=== PATIENT | female | born 1995 | race Hispanic/Latino ===

== ENCOUNTER 2020-07-06 18:16 | Observation (INO) | payer BC, MEDICAID ==
[~2020-07-06] VITALS: Ht 162.6 cm; Wt 87.1 kg
[2020-07-06 19:29] LABS: APPEARANCE,URINE Clear (CLEAR); BILIRUBIN,URINE Negative (NEGATIVE); COLOR,URINE Yellow (YELLOW); GLUCOSE, URINE (UA) Negative (NEGATIVE); KETONES,URINE Trace mg/dL (NEGATIVE); LEUKOCYTE ESTERASE ,URINE Large (NEGATIVE); NITRATE,URINE Negative (NEGATIVE); OCCULT BLOOD,URINE Negative (NEGATIVE); PROTEIN,URINE Negative (NEGATIVE); UROBILINOGEN,URINE 0.2 mg/dL (0.2-1.0)
[2020-07-06 19:46] LABS: BACTERIA,URINE Few /HPF (None Seen); MUCUS,URINE Few LPF (None Seen); SQUAMOUS EPITHELIAL CELL,UR Rare /HPF (0-2)
[2020-07-07] MEDS ORDERED: CETI10CA5 PO (22:48)
[2020-07-07] MEDS ORDERED: PREN1TAB80 PO (22:48)
== END 2020-07-06 21:15 | disposition home or self-care (01) ==
LOC: EDH 18:16 → LDH 18:17
PROVIDERS: ADMIT Obstetrics & Gynecology; ATTEND Obstetrics & Gynecology
DX: O62.9 Abnormality of forces of labor, unspecified (principal); O48.0 Post-term pregnancy; O99.513 Diseases of the respiratory system complicating pregnancy, third trimester; J45.909 Unspecified asthma, uncomplicated; Z91.040 Latex allergy status; Z91.048 Other nonmedicinal substance allergy status; Z91.013 Allergy to seafood; Z3A.40 40 weeks gestation of pregnancy
CPT/HCPCS: 59025; 81001; 87088; 99283; G0378 ×3

== ENCOUNTER 2020-07-07 10:25 | Inpatient (IN) | payer BC, MEDICAID ==
[~2020-07-07] VITALS: Ht 162.6 cm; Wt 87.1 kg
[2020-07-07] MEDS ORDERED: LACTATED RINGERS 1000ML 1,000 ML IV PRN (10:45)
[2020-07-07] MEDS ORDERED: ROPIVACAINE 0.2% 100ML VIAL 100 ML EP SCH (10:45)
[2020-07-07] MEDS ORDERED: LACTATED RINGERS 500 ML 500 ML IV PRN (10:45)
[2020-07-07] MEDS ORDERED: EPHEDRINE SULFATE 50 MG/ML AMPULE IVP PRN (10:45)
[2020-07-07] MEDS ORDERED: BUTORPHANOL TARTRATE 2 MG/ML IVP PRN (10:45)
[2020-07-07] MEDS ORDERED: NALOXONE HCL 0.4 MG/1 ML ML IV PRN (10:45)
[2020-07-07] MEDS ORDERED: OXYTOCIN-LR 20 UNITS/1000 ML 1,000 ML IV SCH (10:45)
[2020-07-07 12:07] LABS: APPEARANCE,URINE Cloudy (CLEAR); BILIRUBIN,URINE Negative (NEGATIVE); COLOR,URINE Yellow (YELLOW); GLUCOSE, URINE (UA) Negative (NEGATIVE); KETONES,URINE 40 mg/dL (NEGATIVE); LEUKOCYTE ESTERASE ,URINE Moderate (NEGATIVE); NITRATE,URINE Negative (NEGATIVE); OCCULT BLOOD,URINE Negative (NEGATIVE); PROTEIN,URINE Negative (NEGATIVE)
[2020-07-07 12:35] LABS: HEMATOCRIT 38.4 % (36-48); MEAN CORPUSCULAR HEMOGLOBIN 30.6 pg (27.0-33.0); MEAN CORPUSCULAR HGB CONC 33.9 g/dL (32.0-36.0); MEAN CORPUSCULAR VOLUME 90.4 fL (79-99); RED BLOOD CELL COUNT(AUTO) 4.25 MIL/uL (4.00-5.50); RED CELL DISTRIBUTION WIDTH 13.3 % (11.0-15.5); WHITE BLOOD COUNT (AUTO) 8.9 K/uL (4.8-10.8)
[2020-07-07 13:07] LABS: BACTERIA,URINE Few /HPF (None Seen)
[2020-07-07 13:08] LABS: RBC,URINE 0-1 /HPF (0-1)
[2020-07-07] MEDS ORDERED: ACETAMINOPHEN 325 MG TAB PO PRN (17:15)
[2020-07-07] MEDS ORDERED: BENZOCAINE/LANOLIN/ALOE VERA 60 ML AEROSOL TP PRN (17:15)
[2020-07-07] MEDS ORDERED: LANOLIN 30GM OINTMENT TP PRN (17:15)
[2020-07-07] MEDS ORDERED: ACETAMINOPHEN WITH CODEINE 1 TAB TAB PO PRN (17:15)
[2020-07-07] MEDS: IBUPROFEN 600 MG TABLET PO PRN (18:46)
[2020-07-07] MEDS: WITCH HAZEL 1 PAD TP PRN (19:17)
[2020-07-07 20:35] VITALS: BP 123/73
[2020-07-07] MEDS: DOCUSATE SODIUM 100 MG CAP PO SCH (21:07)
[2020-07-07] MEDS ORDERED: PREN1TAB80 PO (22:48)
[2020-07-07] MEDS ORDERED: CETI10CA5 PO (22:48)
[2020-07-08] VITALS (7 sets, daily range): BP systolic 101–144; BP diastolic 58–80
[2020-07-08] MEDS: IBUPROFEN 600 MG TABLET PO PRN ×3 (02:04→16:07)
[2020-07-08] MEDS: DOCUSATE SODIUM 100 MG CAP PO SCH ×2 (08:22→21:00)
[2020-07-08 09:13] LABS: HEPATITIS Bs ANTIGEN SCREEN P Negative (Negative)
[2020-07-09 03:02] VITALS: BP 120/61
[2020-07-09] MEDS: WITCH HAZEL 1 PAD TP PRN (06:18)
[2020-07-09] MEDS: IBUPROFEN 600 MG TABLET PO PRN (06:18)
[2020-07-09 07:14] VITALS: BP 104/62
[2020-07-09] MEDS: DOCUSATE SODIUM 100 MG CAP PO SCH (09:00)
[2020-07-09 11:12] VITALS: BP 114/67
[2020-07-09 15:55] VITALS: BP 114/67
== END 2020-07-09 15:55 | disposition home or self-care (01) | DRG 807 ==
LOC: LDH 10:25 → OBSVTOIN 10:25 → WSH 07-08 00:03
PROVIDERS: ADMIT Obstetrics & Gynecology; ATTEND Obstetrics & Gynecology
PROC: 10E0XZZ Delivery of Products of Conception, External Approach (ICD-10-PCS; principal; 2020-07-07)
PROC: 0KQM0ZZ Repair Perineum Muscle, Open Approach (ICD-10-PCS; 2020-07-07)
PROC: 10907ZC Drainage of Amniotic Fluid, Therapeutic from Products of Conception, Via Natural or Artificial Opening (ICD-10-PCS; 2020-07-07)
PROC: 3E0R3BZ Introduction of Anesthetic Agent into Spinal Canal, Percutaneous Approach (ICD-10-PCS; 2020-07-07)
PROC: 00HU33Z Insertion of Infusion Device into Spinal Canal, Percutaneous Approach (ICD-10-PCS; 2020-07-07)
DX: O70.1 Second degree perineal laceration during delivery (principal); Z37.0 Single live birth; Z3A.39 39 weeks gestation of pregnancy; Z91.040 Latex allergy status; Z91.013 Allergy to seafood; Z88.8 Allergy status to other drugs, medicaments and biological substances; Z91.018 Allergy to other foods
CPT/HCPCS: 36415; 59025; 81001; 85027; 86592; 86850; 86900; 86901; 87088; 87340; A4314; G0378; J2590; J2795; J7120